=== PATIENT | male | born 1940 | race Native Hawaiian/Other Pacific Islander ===

== ENCOUNTER 2016-10-17 13:43 | Outpatient (CLI) | payer OTHER, MEDICARE ==
[~2016-10-17 13:43] MED LIST: ALBUTERO2 IN; ALDACTAZIDE OR; ALLEGRA ALRG180 M1 PO; CLONIDINE0.1 MG PO; FLUTICASONE50 MCG; GLIP5TAB65 PO; OMEPRAZOLE20 M1 OR; SPIRONOLACT25 MG PO; SYMBICORT1 AE1 IN; TESTOST CYP100 MG/ML IM; Z-PAK PO; ZIAC PO
== END 2016-10-17 19:33 | disposition home or self-care (01) ==
LOC: MRI 13:43
DX: M47.22 Other spondylosis with radiculopathy, cervical region (principal)

== ENCOUNTER 2016-11-16 08:47 | Outpatient (CLI) | payer OTHER, MEDICARE ==
[2016-11-16 09:07] LABS: PLATELET COUNT 174 K/uL (142-355)
== END 2016-11-16 19:27 | disposition home or self-care (01) ==
LOC: LABW 08:47
PROVIDERS: Internal Medicine
DX: E11.9 Type 2 diabetes mellitus without complications (principal)
CPT/HCPCS: 36415; 80053; 80061; 81000; 82043; 82570; 83036; 84439; 84443; 85027

== ENCOUNTER 2017-04-01 11:47 | Outpatient (CLI) | payer OTHER, MEDICARE | END 2017-04-01 12:50 | disposition home or self-care (01) | LOC: LABW 11:47 | DX: E83.52 Hypercalcemia (principal) | CPT/HCPCS: 36415; 82310; 82330; 83970 ==

== ENCOUNTER 2017-08-20 09:46 | Outpatient (CLI) | payer OTHER, MEDICARE ==
[2017-08-20 10:07] LABS: PLATELET COUNT 219 K/uL (142-355)
[2017-08-20 10:34] LABS: POTASSIUM 4.2 mmol/L (3.6-5.2)
== END 2017-08-20 19:02 | disposition home or self-care (01) ==
LOC: LABW 09:46
PROVIDERS: Internal Medicine
DX: E11.9 Type 2 diabetes mellitus without complications (principal); Z12.5 Encounter for screening for malignant neoplasm of prostate
CPT/HCPCS: 80053; 80061; 81000; 82043; 82570; 83036; 84153; 84439; 84443; 85027

== ENCOUNTER 2018-06-05 08:44 | Outpatient (CLI) | payer OTHER ==
[2018-06-05 09:09] LABS: PLATELET COUNT 189 K/uL (142-355)
[2018-06-05 09:29] LABS: POTASSIUM 4.1 mmol/L (3.6-5.2)
== END 2018-06-05 23:18 | disposition home or self-care (01) ==
LOC: LABW 08:44
PROVIDERS: Internal Medicine
DX: Z00.00 Encounter for general adult medical examination without abnormal findings (principal); E11.9 Type 2 diabetes mellitus without complications; Z12.5 Encounter for screening for malignant neoplasm of prostate
CPT/HCPCS: 36415; 80053; 80061; 81000; 83036; 84153; 84439; 84443; 85027

== ENCOUNTER 2018-08-19 08:08 | Outpatient (CLI) | payer OTHER | END 2018-08-19 22:20 | disposition home or self-care (01) | LOC: NM 08:08 | DX: R07.89 Other chest pain (principal) | CPT/HCPCS: A9500 ==

== ENCOUNTER 2018-09-11 13:59 | Outpatient (CLI) | payer OTHER ==
[2018-09-11 14:32] LABS: PLATELET COUNT 198 K/uL (142-355)
[2018-09-11 14:42] LABS: POTASSIUM 3.9 mmol/L (3.6-5.2)
== END 2018-09-11 23:28 | disposition home or self-care (01) ==
LOC: LABW 13:59
PROVIDERS: Specialist
DX: R07.2 Precordial pain (principal); R93.1 Abnormal findings on diagnostic imaging of heart and coronary circulation; Z01.810 Encounter for preprocedural cardiovascular examination
CPT/HCPCS: 36415; 80053; 85027

== ENCOUNTER 2018-09-24 10:14 | Outpatient (CLI) | payer OTHER ==
[2018-09-24 11:00] LABS: POTASSIUM 4.2 mmol/L (3.6-5.2)
== END 2018-09-24 19:04 | disposition home or self-care (01) ==
LOC: LABW 10:14
PROVIDERS: Nurse Practitioner Adult Health
DX: E11.9 Type 2 diabetes mellitus without complications (principal); I10 Essential (primary) hypertension; Z79.899 Other long term (current) drug therapy
CPT/HCPCS: 36415; 80048

== ENCOUNTER 2018-10-21 15:57 | Outpatient (CLI) | payer OTHER | END 2018-10-21 21:18 | disposition home or self-care (01) | LOC: RAD 15:57 | DX: M17.11 Unilateral primary osteoarthritis, right knee (principal) ==

== ENCOUNTER 2019-03-16 14:13 | Outpatient (CLI) | payer OTHER | END 2019-03-16 19:41 | disposition home or self-care (01) | LOC: RAD 14:13 | DX: J44.9 Chronic obstructive pulmonary disease, unspecified (principal) ==

== ENCOUNTER 2019-07-24 12:53 | Outpatient (CLI) | payer OTHER | END 2019-07-24 21:59 | disposition home or self-care (01) | LOC: RAD 12:53 | DX: J18.1 Lobar pneumonia, unspecified organism (principal) ==

== ENCOUNTER 2019-09-15 11:00 | Outpatient (CLI) | payer OTHER | END 2019-09-15 20:08 | disposition home or self-care (01) | LOC: CT 11:00 | DX: Z12.2 Encounter for screening for malignant neoplasm of respiratory organs (principal); J43.8 Other emphysema; I25.10 Atherosclerotic heart disease of native coronary artery without angina pectoris; R91.1 Solitary pulmonary nodule; J44.9 Chronic obstructive pulmonary disease, unspecified | CPT/HCPCS: G0297-TC ==